=== PATIENT | male | born 1965 | race Caucasian/White ===

== ENCOUNTER 2018-09-24 12:37 | Emergency (ER) | payer BC, SELFPAY ==
[2018-09-24] VITALS (11 sets, daily range): BP systolic 108–130; BP diastolic 72–97; PULSE 59–129; RESP 13–23; TEMP 36.6; O2SAT 98–100; BMI 23.6
[2018-09-24] MEDS: TICAGRELOR 90 MG TABLET 180 MG PO (13:00)
[2018-09-24] MEDS: Metoprolol Tartrate 5 MG/5 ML Vial IV (13:00)
--- NOTE | 2018-09-24 13:00 | RAD_ITS ---
STUDY: X-RAY CHEST REASON FOR EXAM: Male, 53 years old. Chest pain, tachycardia. STEMI alert. TECHNIQUE: Single AP portable view of the chest. COMPARISON: Comparison is made with prior study dated April 24, 2017. FINDINGS: EKG electrode are seen. Hyperinflation. Scattered calcified granulomas. The lungs are clear and expanded. There is no demonstrated pleural abnormality. Normal size heart. Normal mediastinum and rosie. Normal visualized pulmonary arteries. Normal visualized aortic arch and descending thoracic aorta. Normal visualized thoracic spine. Normal visualized ribs, clavicles, and shoulders. There is no demonstrated abnormality of the visualized soft tissue structures of the upper abdomen. RAD/Chest 1 View (Portable) IMPRESSION: Hyperinflation. The lungs are clear. Electronically Signed: Devin Fabian, at 13:16 EDT , Service support ,
--- NOTE | 2018-09-24 13:05 | CM.ED ---
SOCIAL WORK THIS WORKER RESPONDED TO STEMI. SUPPORT AND EDUCATION PROVIDED TO PATIENT'S WHO ARRIVED SHORTLY AFTER STEMI WAS CALLED. JUANCARLOS BERRY, PRISON LIBRARIAN, SENIOR FRONT END DEVELOPER.
--- NOTE | 2018-09-24 13:07 | EKG12_ITS ---
Test Reason : REPEAT Blood Pressure : / mmHG Vent. Rate : 056 BPM Atrial Rate : 264 BPM P-R Int : 000 ms QRS Dur : 110 ms QT Int : 424 ms P-R-T Axes : -89 098 058 degrees QTc Int : 409 ms Atrial flutter with variable A-V block Rightward axis Low Voltage QRS (Limb Leads) Abnormal ECG Confirmed by JEFF CHAUDHRY, KEVIN ([id number]), editor news BARTOLOME CELESTIN ([id number]) on 09/28/2018 10:23:48 AM Referred By: Cirilo Gold Confirmed By:KEVIN AGUILAR MD
--- NOTE | 2018-09-24 13:08 | ED.VISSUMM ---
- ER Visit Summary Date of Service: 09/24/18 Chief Complaint: [] Chest pain rapid heart rate for weeks History of Present Illness: The patient is a 53 M [] history of A. fib on Eliquis flecainide, indicates weeks increasing heart rate, he is had intermittent changes in his flecainide dose metoprolol dose as he was doing so well his doctors try to decrease his medications when he noticed increasing rapid heart rate he began taking his usual dose of flecainide and metoprolol for at least the last 5 to 7 days he has noticed despite doing that he had persistent rapid heart rate and some chest pressure and he finally came in today for evaluation. No fever no cough, indicates he had a nuclear cardiac stress test on point time the found no signs of CAD [place] or other abnormalities he is otherwise a healthy individual with a history of left shoulder surgery Physical Examination: [] Vital signs were remarkable heart rate of 120-130 A. fib on the monitor blood pressure 120/80 General, no distress resting comfortably HEENT is generally unremarkable The neck is supple no adenopathy Cardiovascular, irregular rate and rhythm 130 Lungs, clear bilateral Abdomen, soft nontender Extremities, no clubbing cyanosis or edema Neurologic, awake alert answering questions appropriately moving all 4 extremities Test Results: [] Emergency Department Course and Treatment: [] AG shows A. fib RVR other ST segment changes inferiorly and in V1 suggestive of an acute STEMI, acute STEMI protocol was activated he received the usual medications we spoke with Dr. villeda, when he came to be down see the patient shortly, patient is remained stable here in the department Dr. villeda the patient given metoprolol for rate control, and then we will reassess, Dr. villeda called back and felt that at this point time his symptoms were likely related to his A. fib RVR and the STEMI protocol could be suspended the patient should remitted to the hospital for further management Treatment Plan: [] His heart rate is now about 60 to 70 a flutter, his screening labs are unremarkable as is a chest x-ray at this time per Dr. mistry has instructions the patient be admitted to telemetry is resting complained bed in no distress Disposition: [] Admit stable Impression: [] Chest pain, A. fib flutter RVR Patient has remained heart rate A. fib flutter about 70 no complaints the hospitalist went to see him for admission he declined admission significant fine now indicating that he had a long history of A. 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 It may contain incorrect words, spelling, and punctuation that were not noted in review of the chart prior to signing ED Disposition - Plan for ED Patient: Referrals: Abhinav Mcfarlane III, MD [Primary Care Provider] -
[2018-09-24] MEDS: 0.9% Normal Saline 1,000 ML 150 ML IV (13:09)
[2018-09-24] MEDS: Aspirin 81 MG TAB.CHEW 324 MG PO (13:09)
--- NOTE | 2018-09-24 13:13 | ED.DCSUM_ITS ---
- ER Visit Summary Date of Service: 09/24/18 Chief Complaint: [] Chest pain rapid heart rate for weeks History of Present Illness: The patient is a 53 M [] history of A. fib on Eliquis flecainide, indicates weeks increasing heart rate, he is had intermittent changes in his flecainide dose metoprolol dose as he was doing so well his doctors try to decrease his medications when he noticed increasing rapid heart rate he began taking his usual dose of flecainide and metoprolol for at least the last 5 to 7 days he has noticed despite doing that he had persistent rapid heart rate and some chest pressure and he finally came in today for evaluation. No fever no cough, indicates he had a nuclear cardiac stress test on point time the found no signs of CAD [place] or other abnormalities he is otherwise a healthy individual with a history of left shoulder surgery Physical Examination: [] Vital signs were remarkable heart rate of 120-130 A. fib on the monitor blood pressure 120/80 General, no distress resting comfortably HEENT is generally unremarkable The neck is supple no adenopathy Cardiovascular, irregular rate and rhythm 130 Lungs, clear bilateral Abdomen, soft nontender Extremities, no clubbing cyanosis or edema Neurologic, awake alert answering questions appropriately moving all 4 extremities Test Results: [] Emergency Department Course and Treatment: [] AG shows A. fib RVR other ST segment changes inferiorly and in V1 suggestive of an acute STEMI, acute STEMI protocol was activated he received the usual medications we spoke with Dr. villeda, when he came to be down see the patient shortly, patient is remained stable here in the department Dr. villeda the patient given metoprolol for rate control, and then we will reassess, Dr. villeda called back and felt that at this point time his symptoms were likely related to his A. fib RVR and the STEMI protocol could be suspended the patient should remitted to the hospital for further management Treatment Plan: [] His heart rate is now about 60 to 70 a flutter, his screening labs are unremarkable as is a chest x-ray at this time per Dr. mistry has instructions the patient be admitted to telemetry is resting complained bed in no distress Disposition: [] Admit stable Impression: [] Chest pain, A. fib flutter RVR Patient has remained heart rate A. fib flutter about 70 no complaints the hosp italist went to see him for admission he declined admission significant fine now indicating that he had a long history of A. fib he had a referral manager at home and did not wish to be admitted I discussed on the concept of complications from the A. 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 It may contain incorrect words, spelling, and punctuation that were not noted in review of the chart prior to signing ED Disposition - Plan for ED Patient: Referrals: Abhinav Mcfarlane III, MD [Primary Care Provider] -
[2018-09-24 13:15] LABS: Absolute Lymphocyte Count 3.41 X10^3/ul (0.83-4.51); Absolute Neutrophil Count 4.1 X10^3/uL (2.0-7.7); Basophil# 0.02 X10^3/uL; Basophil% 0.2 % (0-1); Eosinophil# 0.19 X10^3/uL; Eosinophils% 2.2 % (0-5); Hematocrit 49.7 % (40-54); Hemoglobin 17.2 g/dl (13.0-16.5); Lymphocyte # 3.41 X10^3/ul (4.0); Lymphocyte % 39.9 % (19-41); Mean Corp Hgb Conc 34.6 g/gl (32-36); Mean Corpuscular Hgb 32.1 pg (27.0-32.0); Mean Corpuscular Volume 92.9 fL (80-94); Mean Platelet Vol. 9.2 fl (6.2-12.0); Monocyte# 0.84 X10^3/uL; Monocyte% 9.8 % (0-10); Neutrophil # 4.05 X10^3/uL (2.7-7.7); Neutrophil % 47.4 % (47-70); POSITIVE COUNT NO; POSITIVE DIFFERENTIAL NO; POSITIVE MORPHOLOGY NO; Platelet Count 328 K/mm3 (150-450); RBC Distribution Width SD 43.7 fl (35.1-43.9); Red Blood Count 5.35 M/mm3 (4.6-6.2); White Blood Count 8.6 K/mm3 (4.4-11.0)
[2018-09-24] MEDS: dilTIAZem 25 MG/5 ML Vial 20 MG IV BOLUS (13:26)
[2018-09-24 13:27] LABS: Anion Gap 6 (5-15); BUN 12 mg/dL (7-18); BUN/Creat Ratio 10.3 RATIO (10-20); Chloride 105 mmol/L (98-107); Creatinine, Serum 1.17 mg/dL (0.70-1.30); EST Glomerular Filtration Rate 69 mL/min (>60); Est Glom Filt Rate - Afr Amer 83 mL/min (>60); Estimated Creatinine Clearance 71.34 ml/min; Glucose 102 mg/dL (74-106); Sodium Level 139 mmol/L (136-145)
--- NOTE | 2018-09-24 13:31 | PCM.CONS.C ---
Problem List (1) Palpitations Status: Acute Reason for Consult Date of Consultation: 09/24/18 History of Present Illness: The patient is a 53 year old M with past medical history significant for paroxysmal atrial fibrillation. He has been under care of Dr. Benton and has been on flecainide, Xarelto and atenolol for his atrial fibrillation. According to the patient, his symptoms have really been well controlled however this last Friday he started noticing increased palpitations. According to him, he just felt uneasy with them. These palpitations have continued over the last few days. Denies any chest pain or tightness. According to the patient, he is chronically short of breath particularly on exertion. He has not noticed any recent change to that pattern. [] Past Medical History Allergies/Adverse Reactions: Allergies loracarbef [From Lorabid] Allergy (Verified 09/24/18 12:37) Itching Home Medications: Ambulatory Orders Medication Instructions Recorded Atenolol [Tenormin (beta mathieu)] 25 mg PO DAILY 04/06/17 Flecainide [Tambocor] 50 mg PO BID 04/06/17 Rivaroxaban [Xarelto] 20 mg PO DAILY 04/06/17 Fluticasone 0.05% [Flonase Nasal 1 spray NARES DAILY 09/24/18 [place]] Smoking Status: Current every day smoker Review of Systems - Review of Systems General: Denies: Fever, Chills HEENT: Denies: Head Aches Cardiovascular: Reports: Shortness of Breath with Exertion, Palpitations. Denies: Chest Discomfort at Rest, Chest Discomfort with Exertion, PND, Peripheral Edema, Near Syncope, Syncope Respiratory: Reports: Shortness of Breath Gastrointestinal: Denies: Abdominal Discomfort, Jaundice, Nausea, Melena Neurological: Denies: History of TIA, History of CVA Hematologic/ Lymphatic: Denies: Easy Brusing, Easy Bleeding Objective: Vital Signs Temp Pulse Resp BP Pulse Ox 97.9 F 80 14 113/97 H 100 09/24/18 12:38 09/24/18 13:31 09/24/18 13:28 09/24/18 13:28 09/24/18 13:28 Oxygen Delivery Method Room Air Weight: 72.575 kg Body Mass Index (BMI) 23.6 General: Awake, Alert, Oriented x 3, No Acute Distress HEENT: Atraumatic, Normocephalic Oral: Moist Mucosa Neck: Supple, No JVD Lungs: Clear to auscultation Cardiovascular: Irregular Rhythm, Normal S1, Normal S2 Vascular: No Carotid Bruits Abdomen: Bowel Sounds Present, Soft Extremities: No edema Neurological: No Focal Motor or Sensory Deficit Psych/Mental Status: Appropriate 09/24/18 13:00: WBC 8.6, RBC 5.35, Hgb 17.2 H, Hct 49.7, MCV 92.9, MCH 32.1 H, MCHC 34.6, RDW 13.0, RDW Differential 43.7, Plt Count 328, MPV 9.2, Immature Gran % (Auto) 0.500, Neut % (Auto) 47.4, Lymph % (Auto) 39.9, Cross % (Auto) 9.8, Eos % (Auto) 2.2, Baso % (Auto) 0.2, Absolute Neuts (auto) 4.1, Total Counted Not Reportable 09/24/18 13:00: Sodium 139, Potassium 4.0, Chloride 105, Carbon Dioxide 28.0, Anion Gap 6, BUN 12, Creatinine 1.17, Est GFR (MDRD) Af Amer 83, Est GFR (MDRD) Non-Af 69, BUN/Creatinine Ratio 10.3, Glucose 102, Calcium 9.0, Troponin I < 0.015 Rhythm: Atrial fibrillation/flutter EKG: Rhythm is atrial fibrillation/flutter. No ST elevation myocardial infarction ECHO: Stress Test: Cardiac Cath: PCI: CT Surgery: Holter monitor: EPS: PPM: CXR: Chest CT Scan: Assessment/Plan 1. Atrial fibrillation/flutter with uncontrolled ventricular response. Continue beta-mathieu. Start on diltiazem. Control heart rate with beta-blockers and calcium channel mathieu. Stop flecainide. Check 2D echocardiogram with Doppler. Patient has been chronically anticoagulated with Xarelto by his primary application packaging consultant Dr. Benton. His CHADS-2Vasc score is 0 to me at this point in time. Of course I do not have data about his LV function or any vascular disease. I will defer the decision of continuing anticoagulation for the patient to patient's primary application packaging consultant Dr. Benton. 2. Patient has dyspnea on exertion. He has risk factors for coronary artery disease. Check Lexiscan stress Cardiolite in the morning. 3. EtOH abuse. Counseled to quit 4. History of nicotine dependence. Counseled to quit
--- NOTE | 2018-09-24 13:37 | CON.PCM_ITS ---
Problem List (1) Palpitations Status: Acute Reason for Consult Date of Consultation: 09/24/18 History of Present Illness: The patient is a 53 year old M with past medical history significant for paroxysmal atrial fibrillation. He has been under care of Dr. Benton and has been on flecainide, Xarelto and atenolol for his atrial fibrillation. According to the patient, his symptoms have really been well controlled however this last Friday he started noticing increased palpitations. According to him, he just felt uneasy with them. These palpitations have continued over the last few days. Denies any chest pain or tightness. According to the patient, he is chronically short of breath particularly on exertion. He has not noticed any recent change to that pattern. [] Past Medical History Allergies/Adverse Reactions: Allergies loracarbef [From Lorabid] Allergy (Verified 09/24/18 12:37) Itching Home Medications: Ambulatory Orders Medication Instructions Recorded Atenolol [Tenormin (beta mathieu)] 25 mg PO DAILY 04/06/17 Flecainide [Tambocor] 50 mg PO BID 04/06/17 Rivaroxaban [Xarelto] 20 mg PO DAILY 04/06/17 Fluticasone 0.05% [Flonase Nasal 1 spray NARES DAILY 09/24/18 [place]] Smoking Status: Current every day smoker Review of Systems - Review of Systems General: Denies: Fever, Chills HEENT: Denies: Head Aches Cardiovascular: Reports: Shortness of Breath with Exertion, Palpitations. De nies: Chest Discomfort at Rest, Chest Discomfort with Exertion, PND, Peripheral Edema, Near Syncope, Syncope Respiratory: Reports: Shortness of Breath Gastrointestinal: Denies: Abdominal Discomfort, Jaundice, Nausea, Melena Neurological: Denies: History of TIA, History of CVA Hematologic/ Lymphatic: Denies: Easy Brusing, Easy Bleeding Objective: Vital Signs Temp Pulse Resp BP Pulse Ox 97.9 F 80 14 113/97 H 100 09/24/18 12:38 09/24/18 13:31 09/24/18 13:28 09/24/18 13:28 09/24/18 13:28 Oxygen Delivery Method Room Air Weight: 72.575 kg Body Mass Index (BMI) 23.6 General: Awake, Alert, Oriented x 3, No Acute Distress HEENT: Atraumatic, Normocephalic Oral: Moist Mucosa Neck: Supple, No JVD Lungs: Clear to auscultation Cardiovascular: Irregular Rhythm, Normal S1, Normal S2 Vascular: No Carotid Bruits Abdomen: Bowel Sounds Present, Soft Extremities: No edema Neurological: No Focal Motor or Sensory Deficit Psych/Mental Status: Appropriate 09/24/18 13:00: WBC 8.6, RBC 5.35, Hgb 17.2 H, Hct 49.7, MCV 92.9, MCH 32.1 H, MCHC 34.6, RDW 13.0, RDW Differential 43.7, Plt Count 328, MPV 9.2, Immature Gran % (Auto) 0.500, Neut % (Auto) 47.4, Lymph % (Auto) 39.9, [place] % (Auto) 9.8, Eos % (Auto) 2.2, Baso % (Auto) 0.2, Absolute Neuts (auto) 4.1, Total Counted Not Reportable 09/24/18 13:00: Sodium 139, Potassium 4.0, Chloride 105, Carbon Dioxide 28.0, Anion Gap 6, BUN 12, Creatinine 1.17, Est GFR (MDRD) Af Amer 83, Est GFR (MDRD) Non-Af 69, BUN/Creatinine Ratio 10.3, Glucose 102, Calcium 9.0, Troponin I < 0.015 Rhythm: Atrial fibrillation/flutter EKG: Rhythm is atrial fibrillation/flutter. No ST elevation myocardial infarction ECHO: Stress Test: Cardiac Cath: PCI: CT Surgery: Holter monitor: EPS: PPM: CXR: Chest CT Scan: Assessment/Plan 1. Atrial fibrillation/flutter with uncontrolled ventricular response. Continue beta-mathieu. Start on diltiazem. Control heart rate with beta-blockers and calcium channel mathieu. Stop flecainide. Check 2D echocardiogram with Doppler. Patient has been chronically anticoagulated with Xarelto by his primary milling machine tender Dr. Benton. His CHADS-2Vasc score is 0 to me at this point in time. Of course I do not have data about his LV function or any vascular disease. I will defer the decision of continuing anticoagulation for the patient to patient's primary milling machine tender Dr. Benton. 2. Patient has dyspnea on exertion. He has risk factors for coronary artery disease. Check Lexiscan stress Cardiolite in the morning. 3. EtOH abuse. Counseled to quit 4. History of nicotine dependence. Counseled to quit
--- NOTE | 2018-09-24 13:41 | EKG12_ITS ---
Test Reason : PALPS Blood Pressure : / mmHG Vent. Rate : 127 BPM Atrial Rate : 127 BPM P-R Int : 224 ms QRS Dur : 122 ms QT Int : 290 ms P-R-T Axes : 242 112 018 degrees QTc Int : 421 ms Atrial Flutter Low Voltage QRS (Limb Leads) Confirmed by JEFF CHAUDHRY, KEVIN ([id number]), mapping editor BARTOLOME CELESTIN ([id number]) on 09/28/2018 10:24:20 AM Referred By: Cirilo Gold Confirmed By:KEVIN AGUILAR MD
--- NOTE | 2018-09-24 14:45 | PCM.HP.STD ---
History of Present Illness The patient is a 53 year old M [] Past Medical History Allergies loracarbef [From [facility]] Allergy (Verified 09/24/18 14:27) Itching/RASH Home Medications: Ambulatory Orders Medication Instructions Recorded Atenolol [Tenormin (beta mathieu)] 25 mg PO QHS 04/06/17 Flecainide [Tambocor] 50 mg PO BID 04/06/17 Rivaroxaban [Xarelto] 20 mg PO DAILY 04/06/17 Fluticasone 0.05% [Flonase Nasal 2 spray NARES DAILY 09/24/18 [place]] Smoking Status: Current every day smoker Tobacco Use: Cigarettes Patient Problems: Active and Suspected Problems (Last Updated 09/24/18 @ 13:34 by Cirilo Gold MD) Palpitations (Acute) - Physical Exam Vital Signs Temp Pulse Resp BP Pulse Ox 97.9 F 59 L 16 109/82 H 98 09/24/18 12:38 09/24/18 14:30 09/24/18 14:30 09/24/18 14:30 09/24/18 14:30 Oxygen Flow Rate (L/min) 2 Oxygen Delivery Method Nasal Cannula Weight: 72.575 kg Body Mass Index (BMI) 23.6 Laboratory Tests Past 24 Hrs 09/24/18 09/24/18 13:00 13:00 WBC 8.6 RBC 5.35 Hgb 17.2 H Hct 49.7 MCV 92.9 MCH 32.1 H MCHC 34.6 RDW 13.0 RDW Differential 43.7 Plt Count 328 MPV 9.2 Immature Gran % (Auto) 0.500 Neut % (Auto) 47.4 Lymph % (Auto) 39.9 [place] % (Auto) 9.8 Eos % (Auto) 2.2 Baso % (Auto) 0.2 Absolute Neuts (auto) 4.1 Absolute Lymphs (auto) 3.41 Total Counted Not Reportable Sodium 139 Potassium 4.0 Chloride 105 Carbon Dioxide 28.0 Anion Gap 6 BUN 12 Creatinine 1.17 Estim Creat Clear Calc 71.34 Est GFR (MDRD) Af Amer 83 Est GFR (MDRD) Non-Af 69 BUN/Creatinine Ratio 10.3 Glucose 102 Calcium 9.0 Troponin I < 0.015 Assessment/Plan All Active Problems (Last Updated 09/24/18 @ 13:34 by Cirilo Gold MD) Palpitations (Acute)
--- NOTE | 2018-09-24 15:35 | ED.DEP ---
ED Disposition - Plan for ED Patient: Instructions: ED Paroxysmal Atrial Flutter Referrals: Abhinav Mcfarlane III, MD [Primary Care Provider] - Additional Instructions: Follow-up with all of your outpatient providers tomorrow return for change in symptoms
== END 2018-09-24 15:47 | disposition home or self-care (01) ==
PROVIDERS: Emergency Provider Emergency Medicine; Family Provider Family Medicine; PCP Family Medicine; Referring Provider Internal Medicine Cardiovascular Disease
DX: I48.91 Unspecified atrial fibrillation (principal); R07.9 Chest pain, unspecified; I48.92 Unspecified atrial flutter
CPT/HCPCS: 71045; 80048; 84484; 85025; 93005; 99285; J7030; A4216

== ENCOUNTER 2018-11-10 08:56 | Day surgery (SDC) | payer BC, SELFPAY ==
[2018-09-24 12:38] VITALS: BMI 23.6
--- NOTE | 2018-11-05 04:23 | HP_ITS ---
HPI HPI History of Present Illness Surgical H&P: Yes Details: This is a 53-year-old white male who presents today for outpatient cardiovascular evaluation for concerns of palpitations, shortness of breath/dyspnea, atrial fibrillation, and what was reported as an abnormal stress echocardiogram. He has previously been evaluated by [facility] cardiology. He has been treated for his atrial dysrhythmia in the past with a combination of rate control, antiarrhythmic therapy, and anticoagulant therapy. He states over the last several years he has had 2 episodes of recurrent atrial dysrhythmia 1 of which occurred in September of this year. He was evaluated at the [facility] emergency department. He was treated with additional rate control therapy. He was subsequently noted to request discharge home for continued outpatient follow-up. According to the emergency department record he was subsequently discharged AGAINST MEDICAL ADVICE. He states he gradually went back into normal rhythm. He has had no recurrent atrial dysrhythmias as he senses him by feeling flutters or worms in my chest. He has denied ongoing chest discomfort. He admits to shortness of breath and dyspnea which she is attributed to tobacco use. He has had no near syncope or syncope. It appears he followed up with his [facility] crystal grinder and in October of this year had a stress echocardiogram. Per the [facility] report he has resting LV function was reported as normal. His exercise echo was reported as nondiagnostic due to suboptimal heart rate response. Thus based upon his history, symptoms, use of antiarrhythmic therapy with flecainide/Tambocor, he was recommended for further evaluation with diagnostic cardiac catheterization to determine whether he does or does not have underlying coronary artery disease. As his [facility] crystal grinder is retiring he has now transferred his cardiovascular care to the [facility]. He had an ECG performed today. He was noted to be in sinus bradycardia. He had no acute ECG changes. 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 Accompanied by: Self Allergies loracarbef [From Lorabid] Allergy (Verified 11/05/18 15:15) Itching/RASH Medications Fluticasone 0.05% [Flonase Nasal [place]] 2 spray NARES DAILY 09/24/18 [History Confirmed 11/05/18] flecainide 100 mg tablet 100 mg PO BID tab 11/04/18 [History Confirmed 11/05/18] sildenafil 50 mg tablet 50 mg PO DAILY PRN 11/04/18 [History Confirmed 11/05/18] aspirin 81 mg tablet,delayed release 81 mg PO DAILY #1 tab 11/05/18 [Rx Confirmed 11/05/18] atenolol 50 mg tablet 25 mg PO DAILY tab 11/05/18 [History Confirmed 11/05/18] clopidogrel 75 mg tablet 75 mg PO DAILY #30 tab 11/05/18 [Rx Confirmed 11/05/18] PFSH Medical History Abnormal stress test (Acute) Paroxysmal atrial fibrillation (Acute) Palpitations (Acute) DDD (degenerative disc disease) (Chronic) Surgical History History of hernia repair (Resolved) History of shoulder surgery (Resolved) Family History Father Diabetes Mother Cancer Breast Diabetes Grandfather Diabetes Social History Smoking Status: Current every day smoker alcohol intake: current details: occasional substance use type: does not use caffeine: Yes Type: carbonated beverages Number of servings: 2, coffee Number of servings: 2 ROS Const Const: Negative for fatigue, weakness, frequent falls, excessive sweating, weight gain or weight loss Eyes Eyes: Negative for transient loss of vision, blurry vision or change in vision ENT ENT: Negative for dizziness or balance problems Cardio Chest Pain: Yes Character: sharp Location: left chest Duration: minutes, brief Palpitations: No Edema: None Muscle aches with walking: None Resp Respiratory: Positive for SOB with activity (slight, occasional); negative for SOB at rest GI GI: Negative vomiting or vomiting blood/hematemesis : Negative for hematuria Musc Musc: Negative for muscle aches/ myalgia, muscle weakness, joint pain or balance problems Skin Skin: Negative non-healing lesions or rash Neuro Neuro: Negative for dizziness, lightheadedness, orthostatic symptoms, frequent falls, weakness or blurry vision Darin Hematologic/Lymphatic: Negative for easy bleeding Endo Endo: Negative for fatigue or excessive sweating Psych Psych: Negative for anxiety or depression Allergy Allergy/Immunology: Negative for hives, Negative for rash Cardiology Exam Const Appearance: cooperative, healthy appearing, comfortable, no acute distress, well developed and well groomed Nutritional Appearance: thin Orientation: alert, awake and oriented x3 Head Head: normal to inspection, normocephalic and atraumatic Ears: hearing grossly normal bilaterally Nose: external nose normal Face and Sinus: face symmetric Mouth: oral mucosae normal Teeth and gingiva: fair dentition Eyes Eyelids: eyelids normal Conjunctivae: conjunctivae normal Pupils: PERRL EOM: EOM intact bilaterally Neck Neck: normal visual inspection and full ROM Carotids: normal carotid upstroke Chest Chest inspection: normal inspection of the chest, symmetric chest movement and normal respiratory effort Auscultation: Left: Expiratory Wheezes Cardio Palpation: normal PMI Rate: regular rate Heart sounds: S1 normal and S2 normal GI GI: normal to inspection, soft and bowel sounds present Neuro General: alert, awake, oriented x3 and moves all extremities Skin Skin: no rashes or lesions noted Extremities Pulses: Normal: Right Radial Pulse, Left Radial Pulse Lower Extremity Edema: None: Bilateral Psych Psychological: normal affect Assessment & Plan 1. Palpitations R00.2 Plan At the present time he does sense palpitations at times. However he states that the have not proceeded to recurrent atrial dysrhythmias as he has had recently. At the moment he appears remaining in sinus rhythm/sinus bradycardia. He will continue his rate control therapy. He will continue his antiarrhythmic therapy. Orders Orders: Left Heart Cath/COR/LV Percut Today Basic Metabolic Profile (BMP) Today Partial Thromboplast Time Today Prothrombin Time w/INR Today CBC W/Diff, Automated Today 2. Paroxysmal atrial fibrillation I48.0 Plan He does have history of paroxysmal atrial fibrillation as previously noted. At the moment he will continue his rate control therapy and his antiarrhythmic therapy. He will continue his anticoagulant therapy barring temporary interruption with respect to his upcoming invasive evaluation and care. Orders Orders: 12 Lead EKG performed by BMS Today Left Heart Cath/COR/LV Percut Today Basic Metabolic Profile (BMP) Today Partial Thromboplast Time Today Prothrombin Time w/INR Today CBC W/Diff, Automated Today 3. Shortness of breath R06.02 Plan His shortness of breath may or may not be related to his cardiovascular status. Based upon his previous diagnosis and risk factors there would be concern of underlying coronary artery disease. However the same time he does have a positive tobacco history and based on his chest x-ray has hyperinflation thus there may be a component of underlying COPD as well. Orders Orders: Left Heart Cath/COR/LV Percut Today Basic Metabolic Profile (BMP) Today Partial Thromboplast Time Today Prothrombin Time w/INR Today CBC W/Diff, Automated Today 4. Abnormal stress test R94.39 Plan His stress echocardiogram was considered abnormal by his [facility] crystal grinder. He has been recommended for further definitive evaluation with diagnostic cardiac catheterization based upon the aforementioned issues and concerns. The procedure and risks have been discussed with him. He was agreeable to this approach. He will be temporarily interrupting his anticoagulant therapy. He will be placed on aspirin therapy and antiplatelet therapy with clopidogrel in anticipation that he may need PCI. If he does not then he can discontinue these medications and return to his anticoagulant therapy. The above was discussed with the patient. He was agreeable to this approach. Orders Orders: 12 Lead EKG performed by BMS Today Left Heart Cath/COR/LV Percut Today Basic Metabolic Profile (BMP) Today Partial Thromboplast Time Today Prothrombin Time w/INR Today CBC W/Diff, Automated Today Plan Detail Other Medications New: aspirin 81 mg PO DAILY 1 tab 0RF clopidogrel (Plavix) 4 Tabs (300 mg) on day 1; then 1 Tab (75 mg) a day 75 mg PO DAILY 30 tabs 1RF Discontinued: 2 rivaroxaban Discontinued Reason: Order Changed 20 mg PO DAILY BLOOD THINNER Additional Comments Thank you for allowing me to participate in the care of your patient. Please don't hesitate to call if any issues arise. This note was generated using a voice recognition system and there may be incorrect words, spelling or punctuation that were not noted when reviewing the office note prior to saving. Follow Up 6 Months (PFM) Coding Level of Care Code Off vis,est,level 5 Diagnoses Palpitations R00.2 Paroxysmal atrial fibrillation I48.0 Shortness of breath R06.02 Abnormal stress test R94.39 Coding Level of Care Code Off vis,est,level 5 Diagnoses Palpitations R00.2 Paroxysmal atrial fibrillation I48.0 Shortness of breath R06.02 Abnormal stress test R94.39 Supplemental Info Supplemental Information Diagnostics Electrocardiogram 11/05/18 Chest X-Ray 09/24/18 11/05/18 1623 <Electronically signed by Wan Scales MD> Date Wan Scales MD I have re-examined the patient. There are no clinical changes since date of exam.
[2018-11-05 15:15] VITALS: BMI 23.6
[2018-11-05 17:11] LABS: Absolute Lymphocyte Count 3.81 X10^3/ul (0.83-4.51); Basophil# 0.03 X10^3/uL; Basophil% 0.3 % (0-1); Eosinophils% 2.9 % (0-5); Hematocrit 48.2 % (40-54); Lymphocyte # 3.81 X10^3/ul (4.0); Lymphocyte % 37.1 % (19-41); Mean Corp Hgb Conc 35.3 g/gl (32-36); Mean Corpuscular Hgb 32.3 pg (27.0-32.0); Mean Corpuscular Volume 91.6 fL (80-94); Mean Platelet Vol. 9.5 fl (6.2-12.0); Monocyte# 1.03 X10^3/uL; Neutrophil % 48.7 % (47-70); POSITIVE COUNT NO; POSITIVE DIFFERENTIAL NO; POSITIVE MORPHOLOGY NO; Platelet Count 291 K/mm3 (150-450); RBC Distribution Width CV 13.2 % (11.6-14.6); RBC Distribution Width SD 43.9 fl (35.1-43.9); Red Blood Count 5.26 M/mm3 (4.6-6.2); White Blood Count 10.3 K/mm3 (4.4-11.0)
[2018-11-05 17:19] LABS: International Normalized Ratio 1.1
[2018-11-05 17:49] LABS: Anion Gap 6 (5-15); BUN 11 mg/dL (7-18); BUN/Creat Ratio 10.2 RATIO (10-20); Calcium,Total 9.1 mg/dL (8.5-10.1); Chloride 106 mmol/L (98-107); Creatinine, Serum 1.08 mg/dL (0.70-1.30); EST Glomerular Filtration Rate 75 mL/min (>60); Est Glom Filt Rate - Afr Amer 91 mL/min (>60); Glucose 88 mg/dL (74-106); Potassium 4.2 mmol/L (3.5-5.1); Sodium Level 142 mmol/L (136-145)
[2018-11-09 10:56] VITALS: BMI 23.6
--- NOTE | 2018-11-10 15:14 | CL.D_ITS ---
Patient Name: ANATOLY TANG Study Date: 11/10/2018 Performing: Wan Scales MD Ht: 68.89 inches 175 cm : 1965 Wt: 160.94 lbs 73 kg Age: 53 Gender: male BSA: 1.88 PROCEDURE(S) PERFORMED HN53-GKB/COR/LV CLINICAL PROFILE AND INDICATIONS Indications: Suspected CAD Heart Failure: None Stress/Imaging Stress Echocardiogram: Yes Result: Indeterminant (Anormal ECG portion)Stress Echoc ardiogram: Indeterminant (Anormal ECG portion) Angina Classification Anginal Classification w/in 2 Weeks: CCS II CAD Presentations: Stable angina. CONCLUSIONS Elevated Left Ventricular End Diastolic Pressure Normal LV size, wall motion,and systolic function LVEF: by LV gram 55 % Single vessel CAD of the LAD: Mid: Long: Smooth: 85% Stenosis: appearing c/w a combination of LAD int ramyocardial bridge and coronary artery vasospasm which appears to improve s/p IC NTG 200 mcg RECOMMENDATIONS Risk factor modification Medical therapy DESCRIPTION OF PROCEDURE The patient arrived to the procedure lab. The risks and benefits of the procedure as well as a full d escription of our services here and current unavailability of surgical backup were fully explained to the patient and/or their significant other prior to the catheterization. The Timeout was completed, verifying the correct patient and procedure. The patient's procedural site was prepped and draped in the usual fashion. Local anesthetic was given subcutaneously to right groin region with Lidocaine 2%. Using a modified Seldinger technique, arterial access was obtained via the right femoral artery, a 4 Fr sheath was inserted Left Coronary Artery selective angiography was performed in multiple views us ing a 4 Fr. JL5 catheter. Right Coronary Artery selective angiography was then performed in multiple views using a 4 Fr. 3DRC catheter. Left Ventriculography was performed in TANG projection using a 4 Fr . Pigtail catheter. LV to AO pullback pressures were then recorded. Left Coronary Artery selective angiography was performed in multiple views using a 4 Fr. JL5 catheter with IC Nitro given. The arterial sheath was pulled and manual compression applied until hemostasis is achieved. CORONARY ANGIOGRAPHY DOMINANCE: Right Dominant LEFT HEART ASSESSMENT Left Ventricular Ejection Fraction: by LV Gram 55 % Normal LV wall motion Elevated Left Ventricular End Diastolic Pressure LVEDP: 24 mmHg LEFT MAIN: Angiographically normal LEFT ANTERIOR DESCENDING ARTERY: MID LAD: Long: Smooth: 85 % Stenosis which appears c/w a combination of an LAD intramyocardial bridge and coronary artery vasospasm which appears to improve s/p IC NTG 200 mcg CIRCUMFLEX ARTERY: Angiographically normal RAMUS: Angiographically normal (small caliber vessel) RIGHT CORONARY ARTERY: Angiographically normal VALVE FINDINGS: Normal Aortic Valve function Normal Mitral Valve function AORTIC ROOT: Angiographically normal COMPLICATIONS No Complications PROCEDURE MEDICATIONS Versed 1 mg IV Oxygen: 2 L/min via nasal cannula Nitro 200 mcg IC 11/10/2018 11:23:53 SUMMARY OF HEMODYNAMIC DATA Time AIR REST ECG 09:19:29 AO 123/55 (78) SA 10:46:13 LV 131/-3, 17 11:11:28 LV 137/-6, 24 11:11:35 LV 133/-3, 20 11:12:32 LVp 123/-6, 20 11:12:38 AOp 134/70 (95) 11:12:43 Signed By Wan Scales MD On 11/10/2018 3:13:44 PM Wan Scales MD
== END 2018-11-10 15:55 | disposition home or self-care (01) ==
LOC: CLSP 08:58
PROVIDERS: Family Provider Family Medicine; PCP Family Medicine; Referring Provider Internal Medicine Cardiovascular Disease; Visit Provider Internal Medicine Cardiovascular Disease
DX: I25.10 Atherosclerotic heart disease of native coronary artery without angina pectoris (principal); R94.39 Abnormal result of other cardiovascular function study; I48.0 Paroxysmal atrial fibrillation; Z79.82 Long term (current) use of aspirin; Z79.899 Other long term (current) drug therapy; F17.200 Nicotine dependence, unspecified, uncomplicated
CPT/HCPCS: 36415; 80048; 85025; 85610; 85730; 93458; 99152; 99153; J7040; Q9967; C1769; C1894

== ENCOUNTER → 2019-11-29 16:30 | Outpatient (CLI) | payer MEDICARE, SELFPAY ==
[2019-09-16 09:42] VITALS: BMI 24.6
--- NOTE | 2019-11-29 | ASPOS_PTH ---
PATIENT: ANATLOY TANG LOC: [facility] U#:[id number] AGE/SX: 60/M ROOM: RE11/29/[address]: Dr. Jacques Guerra MD : 1965 BED: DIS: SPEC #: [id number] RECD: 11/29/19 13:53 STATUS: GERALD REEvan #: [id number] INOCENTE: 11/29/19 00:[address]: Jacques Guerra DEPT: CYTOLOGY RECD BY: Christ Palma ENTERED: 11/29/19 13:53 SP TYPE: ASP HERE OTHR DR: Dr. Abhinav Mcfarlane III, MD Procedures: Surgery Specimen Level IV Cytology Other Fine Needle Asp on Site HEADER OPERATION: Fine needle aspiration left neck mass PRE-OP DIAGNOSIS: Left neck mass TISSUE SUBMITTED: Fine needle aspiration left neck mass DIAGNOSIS CYTOLOGY Fine needle aspiration, left neck mass (smears and cell block): Consistent with Warthin's tumor. AM:kale 11/30/19 COMMENT The specimen is evaluated at the time of FNA by Dr. Lopez. Immediate Evaluation = Consistent with Warthin's tumor. Case has been reviewed in consultation with Dr. Vyas who concurs with the above diagnosis. IDC:[facility] CYTOLOGY STUDY Slides are reviewed. CYTOLOGY GROSS Received is 0.2 ml of reddish fluid labeled with the patient's name, and designated left neck mass. Three imprints and two paps are made from the submitted fluid and the rest is added to CytoLyt for cell block preparation. Submitted for cytology study. / AM:kale 11/29/19 TC:5 CPT: 77537, 51750, 16272, 54904
== END ==
PROVIDERS: PCP Family Medicine; Referring Provider Otolaryngology; Visit Provider Otolaryngology
DX: R22.1 Localized swelling, mass and lump, neck (principal)
CPT/HCPCS: 10021; 88161; 88305

== ENCOUNTER → 2019-12-16 13:48 | Outpatient (CLI) | payer MEDICARE, OTHER, SELFPAY ==
[2019-09-16 09:42] VITALS: BMI 24.6
--- NOTE | 2019-12-16 13:51 | CT_ITS ---
STUDY: CT SOFT TISSUE NECK WITH CONTRAST REASON FOR EXAM: Male, 54 years old. LT NECK MASS RADIATION DOSAGE (If Supplied By Facility): CTDIvol = ( 17.83 ) mGy, DLP = ( 583.67 ) mGycm TECHNIQUE: The patient was scanned in a multi-detector CT scanner. High resolution transaxial imaging was performed following intravenous administration of IV 75mL Isovue-370. Sagittal and coronal images were reconstructed. Individualized dose optimization techniques were used for this CT. COMPARISON: None. FINDINGS: Within the left parotid gland is a homogeneously enhancing hyperdense lesion with well-defined borders. Differential diagnosis includes a pleomorphic adenoma, Warthin tumor, or adenoid cystic tumor. Lesion best seen on axial image 78, and coronal recon image 50. No suspicious adenopathy or induration of the subcutaneous fat. The fat planes are not disrupted. No corresponding lesion noted in the right parotid gland. Normal bilateral teleprinter spaces. Normal bilateral parapharyngeal spaces. Normal bilateral carotid spaces. Normal bilateral sublingual and submandibular glands and spaces. Normal visualized nasopharynx. Normal retropharyngeal space. Normal perivertebral space. Normal visualized bilateral faucial tonsils. The visualized tongue, tongue base and oropharynx are normal. The visualized cervical lymph nodes (levels I-) are within normal size limits, and maintain normal morphology. There is no demonstrated solid or cystic mass lesion. There is no abnormal contrast enhancement. Normal epiglottis, bilateral vallecula and hypopharynx. The pre-epiglottic and paraglottic adipose spaces are normal. Normal visualized bilateral piriform sinuses, aryepiglottic folds, vocal cords, and arytenoid-cricoid articulations. Normal subglottic trachea. Normal bilateral lobes of the thyroid gland. Normal visualized pulmonary apices. Normal visualized paranasal sinuses. There is multilevel degenerative changes of the cervical spine. CT/Soft Tissue Neck WITH Contrast IMPRESSION: Well-defined slightly hyperdense homogeneous enhancing lesion measuring 1.7 x 1.3 x 1.9 cm within the left parotid gland, differential as described above. ENT consultation and biopsy recommended for further evaluation. No associated adenopathy or inflammation. Fat planes are not disrupted. No airway narrowing or deviation Degenerative bony changes Electronically Signed: David Garcia MD at 15:59 EDT , Service support ,
== END ==
PROVIDERS: PCP Family Medicine; Referring Provider Otolaryngology; Visit Provider Otolaryngology
DX: R22.1 Localized swelling, mass and lump, neck (principal)
CPT/HCPCS: 70491; Q9967

== ENCOUNTER 2020-07-04 05:56 | Day surgery (SDC) | payer MEDICARE, OTHER, SELFPAY ==
[2020-05-24 15:45] VITALS: BMI 24.8
[2020-07-03 09:42] LABS: Hematocrit 50.8 % (40-54); Hemoglobin 17.3 g/dL (13.0-16.5); Mean Corp Hgb Conc 34.1 g/dL (32-36); Mean Corpuscular Volume 96.8 fL (80-94); Mean Platelet Vol. 9.4 fl (6.2-12.0); Platelet Count 279 K/mm3 (150-450); RBC Distribution Width CV 12.4 % (11.6-14.6); RBC Distribution Width SD 44.8 fl (35.1-43.9); Red Blood Count 5.25 M/mm3 (4.6-6.2); White Blood Count 10.4 K/mm3 (4.4-11.0)
[2020-07-03 10:25] LABS: Anion Gap 8 (5-15); BUN 9 mg/dL (7-18); BUN/Creat Ratio 7.8 RATIO (10-20); Calcium,Total 8.9 mg/dL (8.5-10.1); Chloride 106 mmol/L (98-107); Creatinine, Serum 1.15 mg/dL (0.70-1.30); EST Glomerular Filtration Rate 70 mL/min (>60); Est Glom Filt Rate - Afr Amer 84 mL/min (>60); Glucose 103 mg/dL (74-106); Potassium 4.3 mmol/L (3.5-5.1); Sodium Level 138 mmol/L (136-145)
[2020-07-04] VITALS (8 sets, daily range): BP systolic 103–123; BP diastolic 65–96; PULSE 83–126; RESP 16; TEMP 36.1–36.7; O2SAT 94–98; BMI 24.7
[2020-07-04] MEDS: Lactated Ringers 1,000 ML 100 ML IV ×3 (07:05→12:38)
[2020-07-04] MEDS: Mupirocin Ointment 22gm Tube 1 APPLIC (11:41)
--- NOTE | 2020-07-04 12:04 | PCM.OPRPT ---
Problem List (1) Mass of parotid gland Status: Chronic Report of Operation Date of Procedure: 07/04/20 Pre-Operative Diagnosis: left parotid mass Post-Operative Diagnosis: left parotid mass Surgery/Procedure Performed:: left superficial parotidectomy - aborted Type of Anesthesia:: General Description of Procedure: on the day of the procedure, after appropriate informed consent was obtained, the patient was brought to the operating room and placed in supine position on the operating table. he was placed under general endotracheal anesthesia by the anesthesiologist. the endotracheal tube was secured, the eyes were taped. the table was rotated 90 degrees toward the surgeon. facial nerve electrodes were placed on the left face and confirmed. the eyes were protected with tegaderm. the face was prepped and draped in sterile fashion. a brooke incision was injected with lidocaine/epinephrine. after vasoconstriction, a modified brooke incision was made with a 15 blade. the superficial musculoaponeurotic system flap was isolated from the overlying skin with a metzenbaum scissor. the flap was then dissected off of the parotid-masseteric fascia with scissors. this was taken inferiorly along the platysma muscle exposing the tumor and the rest of the parotid gland. the tragal pointer was dissected in a supraperichondrial plane. 1 cm inferior and deep a juan dissector was used to locate the main trunk of the facial nerve. a considerable amount of time was spent and the main trunk was not found in its usual location. the posterior belly of the digastric muscle was dissected and the main trunk was found to be deep to the muscle, which is not its typical location. the nerve stimulated but no main trunk of normal caliber could be seen grossly. additional dissection resulted in no discernible nerve pattern and no stimulating nerves. meanwhile, the patient was placed on numerous cardiac medications as well as a phenylephrine drip for his afib with RVR. at this point, it was deemed that the patient had cardiac instability, a completely benign tumor with no chance of malignant transformation and certain variant anatomy of the facial nerve. enucleation was not attempted of the readily visible inferior tail tumor given that the branches of the nerve could be anywhere in its relation. given the situation, a retrograde dissection and additional incisions along the submandibular gland were also not attempted. the incision was closed with a combination of 4-0 vicryl and 5-0 nylon. a 15 spanish slotted drain was placed. the patient was awoken from anesthesia and transferred to the PACU in stable condition. his left-sided house-brackmann score was 1 in the PACU with no deficits.
--- NOTE | 2020-07-04 12:31 | EKG12_ITS ---
Test Reason : POSTOP, HX AFIB Blood Pressure : / mmHG Vent. Rate : 108 BPM Atrial Rate : 122 BPM P-R Int : 000 ms QRS Dur : 100 ms QT Int : 326 ms P-R-T Axes : 000 095 058 degrees QTc Int : 436 ms Atrial fibrillation Nonspecific ST abnormality Abnormal ECG When compared with ECG of 24-SEP-2018 13:41, Atrial fibrillation has replaced Atrial flutter Vent. rate has increased BY [address] no longer elevated in Inferior leads Nonspecific T wave abnormality now evident in Inferior leads T wave amplitude has decreased in Anterolateral leads Confirmed by RUBEN CHAUDHRY, BENJIE ([id number]), food editor BARTOLOME CELESTIN ([id number]) on 07/10/2020 12:22:39 PM Referred By: Porfirio Guerra Confirmed By:SUMEET MIRANDA MD
--- NOTE | 2020-07-04 13:42 | PCM.DC ---
- Discharge Diagnoses Current Active Problems: Current Active and Chronic Problems (Last Reviewed 05/24/20 @ 15:46 by Jacqui Hernandez) Mass of parotid gland (Chronic) You will use the following diet at home:: No restrictions Discharge Activity: Return to Normal Activity Call your doctor if your incision/area has: Increased Pain/ Swelling Allergies/Adverse Reactions: Allergies loracarbef [From Lorabid] Allergy (Verified 06/27/20 09:06) Itching/RASH Medications to take at Discharge Fluticasone 0.05% [Flonase Nasal [place]] 2 spray NARES DAILY 09/24/18 sildenafil 50 mg tablet 50 mg PO DAILY PRN 11/04/18 Rivaroxaban [Xarelto] 20 mg PO DAILY 11/10/18 cholecalciferol (vitamin D3) 25 mcg (1,000 unit) capsule 1,000 unit PO DAILY 04/29/19 atenolol 50 mg tablet 50 mg PO DAILY #90 tab 06/17/19 gabapentin 100 mg capsule 100 mg PO TID 05/24/20 Primary Care Physician: Abhinav Mcfarlane III, MD [Primary Care Provider] - Test Results: Test results from this visit will be discussed in further detail at your follow-up appointment, if applicable. Please Follow Up With: Porfirio Guerra MD When: tomorrow
== END 2020-07-04 14:15 | disposition home or self-care (01) ==
LOC: SDC 06:02 → AC 06:03
PROVIDERS: Anesthesiology; PCP Family Medicine; Referring Provider Otolaryngology; Visit Provider Otolaryngology
PROC: (CPT 42415; principal; 2020-07-04 07:00)
DX: D11.0 Benign neoplasm of parotid gland (principal); I48.91 Unspecified atrial fibrillation; F17.210 Nicotine dependence, cigarettes, uncomplicated; Z53.09 Procedure and treatment not carried out because of other contraindication
CPT/HCPCS: 42415; 36415; 80048; 84484; 85027; 87426; 93005; C9803; J7120; J2405

== ENCOUNTER → 2024-08-18 | Outpatient (CLI) | payer MEDICARE, SELFPAY ==
[2024-08-18 15:54] LABS: Absolute Lymphocyte Count 3.36 X10^3/uL (0.83-4.51); Absolute Neutrophil Count 5.8 X10^3/uL (2.0-7.7); Basophil# 0.08 X10^3/uL; Basophil% 0.8 % (0-1); Eosinophil# 0.18 X10^3/uL; Eosinophils% 1.7 % (0-5); Hematocrit 55.3 % (40-54); Lymphocyte # 3.36 X10^3/ul (0.83-4.51); Lymphocyte % 31.9 % (19-41); Mean Corp Hgb Conc 34.4 g/dL (32-36); Mean Corpuscular Hgb 34.1 pg (27.0-32.0); Mean Corpuscular Volume 99.1 fL (80-94); Mean Platelet Vol. 9.1 fl (6.2-12.0); Monocyte% 9.5 % (0-10); NRBC Flagged by Analyzer 0 % (0-5); Neutrophil # 5.84 X10^3/uL (2.7-7.7); Neutrophil % 55.4 % (47-70); Platelet Count 317 K/mm3 (150-450); RBC Distribution Width SD 47.8 fl (35.1-43.9); Red Blood Count 5.58 M/mm3 (4.6-6.2); White Blood Count 10.5 K/mm3 (4.4-11.0)
[2024-08-18 16:21] LABS: Pathologist Review May foll
[2024-08-18 17:46] LABS: ALB/GLOB Ratio 1.5 RATIO (0.9-2.4); AST(SGOT) 37 U/L (<=37); Alanine Aminotransfer ALT/SGPT 52 U/L (<=46); Albumin, Serum 4.7 g/dL (3.4-4.8); Alkaline Phosphatase 60 U/L (40-129); Anion Gap 13 (5-15); BUN 11 mg/dL (4-19); BUN/Creat Ratio 9.1 RATIO (10-20); Calcium,Total 10.1 mg/dL (7.6-11.0); Carbon Dioxide 24.1 mmol/L (21.0-32.0); Chloride 101 mmol/L (98-108); Creatinine, Serum 1.19 mg/dL (0.70-1.20); EST Glomerular Filtration Rate 69 (>60); Globulin 3.2 g/dL (2.2-4.2); Glucose 112 mg/dL (70-99); PSA,Total - Annual Screen 1.99 ng/mL (0.02-4.00); Potassium 4.7 mmol/L (3.3-5.1); Protein, Total 7.9 g/dL (5.9-8.4); Sodium Level 137 mmol/L (133-145); Total Bilirubin 0.83 mg/dL (0.00-1.30)
[2024-08-18 20:27] LABS: Hepatitis C Antibody Nonreactive (Nonreactive)
== END | disposition home or self-care (01) ==
PROVIDERS: PCP Family Medicine Geriatric Medicine; Visit Provider Family Medicine Geriatric Medicine
DX: R53.83 Other fatigue (principal); Z13.89 Encounter for screening for other disorder; Z12.5 Encounter for screening for malignant neoplasm of prostate
CPT/HCPCS: 36415; 80053; 84153; 84443; 85025; 86803; G0103

== ENCOUNTER → 2024-10-11 | Outpatient (CLI) | payer MEDICARE, SELFPAY ==
--- NOTE | 2024-10-11 08:15 | US_ITS ---
PROCEDURE: ABD LIMITED W/ ELASTOGRAPHY, 10/11/2024 REASON FOR EXAM: ELEVATED FERRITIN COMPARISON: None TECHNIQUE: Grayscale and color Doppler imaging of the right upper quadrant was performed. Elastography was performed for non-invasive assessment of liver tissue stiffness utilizing a Everloop S-shear wave imaging unit. FINDINGS: Liver: Echogenic. 18.0 cm in length. Gallbladder: No visualized stones, wall thickening or pericholecystic fluid. Reportedly, sonographic Penn's was negative. Biliary tree: Unremarkable. CBD measures 6 mm. Pancreas: Partially obscured by shadowing bowel gas, grossly unremarkable as visualized. Right kidney: Unremarkable. 10.7 cm in length. Other: No visualized free fluid. Hepatic elastography: Number of measurements: 15 measurements across 3 regions, 5 measurements per region. US probe: CA1-7A. EQI median: 9.6 kPa EQI median velocity: 1.8 m/s IQR/Med: 12.9-24.4% (kPa) and 5.7-11.5% (m/s). If the IQR/Med is IQR/median >30% (for kPa) or >15% in m/s, the variance in the measurements is a large and the accuracy of the measurement may be in question. US/ABD Limited w/ Elastography IMPRESSION: 1. Appearance of the hepatic parenchyma most commonly suggestive of hepatic james atosis. Correlate for clinical and laboratory evidence of chronic liver disease. 2. Liver stiffness is 9.6 kPa. Per the below 2020 SRU criteria, this is suggest clemente of compensated advanced chronic liver disease but requires further testing for confirmation. 3. Additional description as above. Assessment is per the Update to the SRU Liver Elastography Consensus Statement (2020) Note that the above assessment of liver fibrosis is vendor-neutral and intended for use in fibrosis related to viral etiologies and non-alcoholic fatty-liver disease (NAFLD); in causes other than viral hepat itis and NAFLD, the cutoff values are currently not well established. In some patients with NAFLD, the cutoff values for cACLD may be lower (7-9 kPa). Note also that in the setting of elevated LFTs, nonfasting or vascular congestion, the stage of lifer fibrosis may be overestimated. Previous SRU reference values: <1.37 m/s (5.7kPa): No to mild fibrosis 1.37 m/s - 2.2 m/s: Moderate to severe fibrosis >2.2 m/s (15kPa): Significant fibrosis / cirrhosis Reading Location: [id number]
[2024-10-12 05:07] LABS: GGTP 45 IU/L (0-65); Hepatitis Be Ab Non Reactive (Negative); Hepatitis Be Ag Negative (Negative)
== END | disposition home or self-care (01) ==
PROVIDERS: PCP Family Medicine Geriatric Medicine; Referring Provider Internal Medicine Medical Oncology; Visit Provider Internal Medicine Medical Oncology
DX: R79.89 Other specified abnormal findings of blood chemistry (principal); D75.1 Secondary polycythemia
CPT/HCPCS: 36415; 76705; 76981; 82977; 86707; 87350

== ENCOUNTER → 2024-10-25 | Outpatient (CLI) | payer MEDICARE, SELFPAY ==
--- NOTE | 2024-10-25 15:03 | CT_ITS ---
PROCEDURE: LOW DOSE CT LUNG SCREENING 10/25/2024 REASON FOR EXAM: NICOTINE DEPENDENCE 45 year smoking history TECHNIQUE: Low Dose CT Lung screening without contrast. Coronal and Sagittal reconstruction series were provided. One or more dose reduction techniques were used (e.g., Automated exposure control, adjustment of the mA and/or kV according to patient size, use of iterative reconstruction technique). REFERENCE LINK: [employer] Lung-RADS RADIATION DOSE SUMMARY: DLP: 86.97 mGycm COMPARISON: None FINDINGS: PULMONARY NODULES: (Only nodules >3mm are reported) Pulmonary Nodules: None Hardware:None Lymph Nodes:There is no pathologic adenopathy by size criteria Heart and Vasculature: Unremarkable Coronary Artery Calcifications: Present Lungs and Airways: There is no infiltrate or consolidation. Pleura:There is no pneumothorax or effusion Upper Abdomen:Unremarkable Bones:Unremarkable CT/Low Dose CT Lung Screening IMPRESSION: There is no suspicious pulmonary nodule or mass. Coronary artery calcification (CAC) is present Lung-RADS Category: 1: Negative Other Significant Findings: None. Reading Location: [facility]
== END | disposition home or self-care (01) ==
LOC: CT 14:58
PROVIDERS: PCP Family Medicine Geriatric Medicine; Referring Provider Family Medicine Geriatric Medicine; Visit Provider Family Medicine Geriatric Medicine
DX: F17.210 Nicotine dependence, cigarettes, uncomplicated (principal)
CPT/HCPCS: 71271

== ENCOUNTER → 2025-01-18 | Outpatient (CLI) | payer MEDICARE, SELFPAY ==
[2025-01-18 16:23] LABS: Hematocrit 49.8 % (40-54); Hemoglobin 17.3 g/dL (13.0-16.5); Immature Granulocytes Count 0.040 X10^3/uL (0.0-0.0); Mean Corp Hgb Conc 34.7 g/dL (32-36); Mean Corpuscular Volume 99.6 fL (80-94); Mean Platelet Vol. 9.4 fl (6.2-12.0); NRBC Flagged by Analyzer 0 % (0-5); Platelet Count 240 K/mm3 (150-450); RBC Distribution Width CV 13.2 % (11.6-14.6); RBC Distribution Width SD 48.5 fl (35.1-43.9); Red Blood Count 5.00 M/mm3 (4.6-6.2); White Blood Count 9.1 K/mm3 (4.4-11.0)
[2025-01-18 21:03] LABS: AST(SGOT) 28 U/L (<=37); Alanine Aminotransfer ALT/SGPT 29 U/L (<=46); Albumin, Serum 4.2 g/dL (3.4-4.8); Alkaline Phosphatase 53 U/L (40-129); Anion Gap 15 (5-15); BUN 6 mg/dL (4-19); BUN/Creat Ratio 5.2 RATIO (10-20); Calcium,Total 9.5 mg/dL (7.6-11.0); Carbon Dioxide 21.5 mmol/L (21.0-32.0); Chloride 104 mmol/L (98-108); Globulin 2.6 g/dL (2.2-4.2); Glucose 97 mg/dL (70-99); Potassium 4.0 mmol/L (3.3-5.1)
== END | disposition home or self-care (01) ==
LOC: LAB 15:47
PROVIDERS: PCP Family Medicine Geriatric Medicine; Referring Provider Family Medicine Geriatric Medicine; Visit Provider Family Medicine Geriatric Medicine
DX: R53.83 Other fatigue (principal)
CPT/HCPCS: 36415; 80053; 84443; 85025

== ENCOUNTER 2025-02-24 09:55 | Day surgery (SDC) | payer MEDICARE, SELFPAY ==
--- NOTE | 2025-02-15 13:47 | EKG12_ITS ---
Test Reason : PREOP Blood Pressure : */* mmHG Vent. Rate : 96 BPM Atrial Rate : 91 BPM P-R Int : * ms QRS Dur : 140 ms QT Int : 382 ms P-R-T Axes : * 91 61 degrees QTcB Int : 482 ms Atrial fibrillation Right bundle branch block Abnormal ECG Confirmed by Tru De ([id number]), commercial production editor BARTOLOME CELESTIN ([id number]) on 02/16/2025 7:13:19 AM Referred By: Epifanio Alonzo Confirmed By: Tru De
--- NOTE | 2025-02-16 15:47 | PAT.ANESEVAL ---
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 When Was Last Pacemaker Check QUESTION #4 FULL TEXT: You/Your Family Experience fever (hyperthermia) with Anesthesia Last Oral Intake Last Oral intake: Last Oral Intake NPO since Meds taken in AM with sips of water? Meds patient instructed to take am of surgery PONV PONV - collection systems modeler: PONV - collection systems modeler Female No 02/10/25 10:26 HX of Motion Sickness No 02/10/25 10:26 HX of N/V After Surgery No 02/10/25 10:26 Non-Smoker No 02/10/25 10:26 Duration of Surgery greater Yes 02/10/25 10:26 than 60 minutes Number of Risk Factors 1 02/10/25 10:26 PONV Score Low Risk 02/10/25 10:26 Height & Weight Height & Weight: Anesthesia: Height & Weight Height 5 ft 9 in 01/26/25 14:18 Respiratory Assessment Respiratory Assessment - collection systems modeler: Respiratory Tract Infection Hx - collection systems modeler Hx Respiratory Tract Infection No 02/10/25 10:26 STOP Sleep Apnea STOP Sleep Apnea - collection systems modeler: STOP Sleep Apnea - collection systems modeler Hx Hypertension No 02/10/25 10:26 Hx Sleep Apnea No 02/10/25 10:26 CPAP No 02/10/25 10:26 BIPAP No 02/10/25 10:26 Do you snore loudly (louder Yes 02/10/25 10:26 than talking or can be heard Do you often feel tired/ No 02/10/25 10:26 fatigued/ sleepy during daytime? Has anyone observed you stop No 02/10/25 10:26 breathing during sleep? STOP Results Negative 02/10/25 10:26 QUESTION #5 FULL TEXT : Do you snore loudly (louder than talking or can be heard through closed doors)? 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 Specify any problems Hx of Preganancy in last 3 N/A 02/10/25 10:26 Months Nurse Filling Out Transfusion VCHRISTIN 02/10/25 10:26 & Questions: Date: 02/10/25 02/10/25 10:26 Time: 10:30 02/10/25 10:26 Patient unable to answer at this time (ie. confused, unrespo /Reproduction History /Reproductive History - collection systems modeler: /Reproductive Hx- collection systems modeler Hx Now No 02/10/25 10:26 Gestational Age (in weeks): EDC: Hx Hx Para Hx Section SAB No 02/10/25 10:26 [facility] Medical History (Updated 02/10/25 @ 10:25 by Anny Wright) Wears glasses Alcohol use Arthritis Back pain Injury of back History of hiatal hernia Smoker Shortness of breath on exertion History of echocardiogram Abnormal Holter monitor finding Cardiology follow-up encounter History of atrial fibrillation Atrial fibrillation Polycythemia 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 DDD (degenerative disc disease) Paroxysmal atrial fibrillation Home Medications ?Medication ?Instructions ?Recorded ?Last Taken ?Type fluticasone propionate 50 2 spray NARES DAILY ALLERGIES 09/24/18 09/24/18 History mcg/actuation nasal spray,suspension sildenafil 50 mg tablet 50 mg PO DAILY PRN ED 11/04/18 10/05/18 History rivaroxaban 20 mg tablet 20 mg PO DAILY 11/10/18 Unknown History atenolol 50 mg tablet 50 mg PO DAILY HEART/BLOOD 06/17/19 Unknown Rx PRESSURE #90 tabs antiarthritic combination no.2 900 900 mg PO DAILY 06/21/22 Unknown History mg tablet (glucosamine-chondroitin) cholecalciferol (vitamin D3) 50 50 mcg PO QDAY 01/26/25 Unknown History mcg (2,000 unit) capsule Allergy/AdvReac Type Severity Reaction Status Date / Time loracarbef (From Lorabid) Allergy Itching/ZHOU Verified 02/10/25 10:13 H Family History Father Diabetes Mother Cancer Breast Diabetes Grandfather Diabetes Surgical History (Updated 02/10/25 @ 10:25 by Anny Wright) History of esophagogastroduodenoscopy (EGD) History of cardiac catheterization Hx of parotidectomy H/O sinus surgery History of bilateral cataract extraction Status post left heart catheterization (LHC) (~11/09/18) History of shoulder surgery History of hernia repair Social History Smoking Status: Current every day smoker tobacco type: cigarettes Tobacco: How many years used: 46 alcohol intake: current alcohol intake frequency: 3 or more drinks per day Alcohol type: other substance use type: marijuana caffeine: Yes Type: carbonated beverages Number of servings: 2 and coffee Number of servings: 2 Audit: Pertinent Findings Pertinent Findings EKG Perinent findings: EKG 02/15/2025. A-fib. Right bundle branch block. Heart catheterization pertinent findings: Heart cath 11/10/2018. Single-vessel CAD of the LAD. Recommendation medical therapy. Consult pertinent findings: Cardiology visit 09/30/2024. History of paroxysmal A-fib and LAD intramyocardial bridge. TTE was performed through the [employer] system. On 04/07/2015. At that time the left ventricle was normal with an LVEF of approximately 60% with trivial MR and trivial to mild TR. Recommendation Anesthesia Recommendation Anesthesia recommendation: OPTIMIZED for anesthesia
[2025-02-24] VITALS (8 sets, daily range): BP systolic 106–128; BP diastolic 65–95; PULSE 84–115; RESP 16; TEMP 36.1–36.6; O2SAT 96–100; BMI 25.1
[2025-02-24] MEDS: Lactated Ringers 1,000 ML 15 ML IV (10:24)
--- NOTE | 2025-02-24 10:40 | PRE.ANES_ITS ---
ASA Classification* ASA Classification ASA Classification: 3 Assessment & Plan Anesthesia* Anesthesia Assessment Anesthesia Assessment: Discussed sedation and/or anesthesia options, risks, benefits, and alternatives with patient/parents/legal guardian/POA. Questions invited. The patient/parents/legal guardian/POA seems to understand and agrees to proceed with anesthesia plan. Reviewed the physical assessment, medical history, allergy history and patient home medications list prior to surgery/procedure/anesthetic and documented any changes. Performed airway and anesthesia risk assessments. Anesthesia Type Anesthesia Type: General History Source History Obtained from:: Patient and Chart Anesthesia Focused Assessment* Temperature: 97.4 F Pulse Rate: 84 Blood Pressure: 119/95 Respiratory Rate: 16 Pulse Ox: 100 Oxygen Delivery Method: Room Air Airway Assessment Mouth opens: >3 cm Mallampati Score: I Teeth Condition: Intact Neck Range of motion (ROM): Full ROM Labs Anesthesia Preop lab: CBC WBC, (4.4-11.0) 9.1 K/mm3 01/18/25, 15:50 RBC, (4.6-6.2) 5.00 M/mm3 01/18/25, 15:50 Hgb, (13.0-16.5) 17.3 g/dL H 01/18/25, 15:50 Hct, (40-54) 49.8 % 01/18/25, 15:50 Plt Count, (150-450) 240 K/mm3 01/18/25, 15:50 CHEMISTRY Potassium, (3.3-5.1) 4.0 mmol/L 01/18/25, 15:50 Sodium, (133-145) 140 mmol/L 01/18/25, 15:50 BUN, (4-19) 6 mg/dL 01/18/25, 15:50 Creatinine, (0.70-1.20) 1.23 mg/dL H 01/18/25, 15:50 Glucose, (70-99) 97 mg/dL 01/18/25, 15:50 TSH, (0.300-4.200) 3.890 uIU/mL 01/18/25, 15:50 COAG PT, (11.7-14.9) 14.0 SECONDS 11/10/18, 10:30 Pre-Assessment Diagnosis/Proposed Procedure Planned Operative Procedure(s): (R) Lap Robotic Inguinal Hernia w/mesh Anesthesia History Anesthesia History - spa attendant: Anesthesia History - spa attendant Hx Hospitalization No 02/10/25 10:26 Any Problems With Anesthesia Yes: HARD TIME CONTROLLING A 02/10/25 10:26 -FIB WITH LAST SURGERY, UNABLE TO COMPLETE LAST SURG Cholinesterase deficiency No 02/10/25 10:26 You/Your Family Experience No 02/10/25 10:26 fever (hyperthermia) with Relationship Recent Exposure to Contagious No 02/24/25 10:17 Disease Does patient have nerve No 02/10/25 10:26 stimulator Patient instructed to have device shut off --Does patient have Pacemaker No 02/24/25 10:17 or ICD? When Was Last Pacemaker Check QUESTION #4 FULL TEXT: You/Your Family Experience fever (hyperthermia) with Anesthesia Last Oral Intake Last Oral intake: Last Oral Intake NPO since 22:00 02/24/25 10:17 Meds taken in AM with sips of Yes 02/24/25 10:17 water? Meds patient instructed to atenolol 0700 02/24/25 10:17 take am of surgery PONV PONV - spa attendant: PONV - spa attendant Female No 02/10/25 10:26 HX of Motion Sickness No 02/10/25 10:26 HX of N/V After Surgery No 02/10/25 10:26 Non-Smoker No 02/10/25 10:26 Duration of Surgery greater Yes 02/10/25 10:26 than 60 minutes Number of Risk Factors 1 02/10/25 10:26 PONV Score Low Risk 02/10/25 10:26 Height & Weight Height & Weight: Anesthesia: Height & Weight Height 5 ft 8.9 in 02/24/25 10:17 Weight: 77 kg 02/24/25 10:17 Body Mass Index (BMI) 25.1 02/24/25 10:17 Respiratory Assessment Respiratory Assessment - spa attendant: Respiratory Tract Infection Hx - spa attendant Hx Respiratory Tract Infection No 02/10/25 10:26 STOP Sleep Apnea STOP Sleep Apnea - spa attendant: STOP Sleep Apnea - spa attendant Hx Hypertension No 02/10/25 10:26 Hx Sleep Apnea No 02/10/25 10:26 CPAP No 02/10/25 10:26 BIPAP No 02/10/25 10:26 Do you snore loudly (louder Yes 02/10/25 10:26 than talking or can be heard Do you often feel tired/ No 02/10/25 10:26 fatigued/ sleepy during daytime? Has anyone observed you stop No 02/10/25 10:26 breathing during sleep? STOP Results Negative 02/10/25 10:26 QUESTION #5 FULL TEXT : Do you snore loudly (louder than talking or can be heard through closed doors)? 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 Specify any problems Hx of Preganancy in last 3 N/A 02/10/25 10:26 Months Nurse Filling Out Transfusion VCHRISTIN 02/10/25 10:26 & Questions: Date: 02/10/25 02/10/25 10:26 Time: 10:30 02/10/25 10:26 Patient unable to answer at this time (ie. confused, unrespo /Reproduction History /Reproductive History - spa attendant: /Reproductive Hx- spa attendant Hx Now No 02/10/25 10:26 Gestational Age (in weeks): EDC: Hx Hx Para Hx Section SAB No 02/10/25 10:26 Active Medications Active Medications: Current Medications Generic Name Dose Route Start Last Admin Trade Name Freq PRN Reason Stop Dose Admin Clindamycin Phosphate 900 mg in 50 mls @ 75 mls/hr 02/24/25 11:30 Cleocin IV 02/24/25 12:09 INTRAOP ONE Lactated Ringer's 1,000 mls @ 15 mls/hr 02/24/25 10:15 02/24/25 10:24 IV 15 mls/hr .Q48H MIRANDA Administration PFSH Medical History (Updated 02/10/25 @ 10:25 by nAny Wright) Wears glasses Alcohol use Arthritis Back pain Injury of back History of hiatal hernia Smoker Shortness of breath on exertion History of echocardiogram Abnormal Holter monitor finding Cardiology follow-up encounter History of atrial fibrillation Atrial fibrillation Polycythemia 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 DDD (degenerative disc disease) Paroxysmal atrial fibrillation Home Medications ?Medication ?Instructions ?Recorded ?Last Taken ?Type fluticasone propionate 50 2 spray NARES DAILY ALLERGIE S 09/24/18 09/24/18 History mcg/actuation nasal spray,suspension sildenafil 50 mg tablet 50 mg PO DAILY PRN ED 10/05/18 History rivaroxaban 20 mg tablet 20 mg PO DAILY 11/10/18 Unkn own History atenolol 50 mg tablet 50 mg PO DAILY HEART/BLOOD 0 06/17/19 Unknown Rx PRESSURE #90 tabs antiarthritic combination no.2 900 900 mg PO DAILY Unknown History mg tablet (glucosamine-chondroitin) cholecalciferol (vitamin D3) 50 50 mcg PO QDAY 5 Unknown History mcg (2,000 unit) capsule Allergy/AdvReac Type Severity Reaction Status Date / Time loracarbef (From Lorabid) Allergy Itching/ZHOU Verified 02/10/25 10:13 H Family History Father Diabetes Mother Cancer Breast Diabetes Grandfather Diabetes Surgical History (Updated 02/10/25 @ 10:25 by Anny Wright) History of esophagogastroduodenoscopy (EGD) History of cardiac catheterization Hx of parotidectomy H/O sinus surgery History of bilateral cataract extraction Status post left heart catheterization (LHC) (~11/09/18) History of shoulder surgery History of hernia repair Social History Smoking Status: Current every day smoker tobacco type: cigarettes Tobacco: How many years used: 46 alcohol intake: current alcohol intake frequency: 3 or more drinks per day Alcohol type: other substance use type: marijuana caffeine: Yes Type: carbonated beverages Number of servings: 2 and coffee Number of servings: 2 Review of Systems (Anesthesia) ROS Narrative System reviewed and no additional complaints, except as documented.
--- NOTE | 2025-02-24 10:56 | PCM.HP.STD ---
HPI - General General Date of Admission: 02/24/25 Date of Service: 02/24/25 Chief Complaint: Right inguinal hernia HPI Narrative ANATOLY TANG, is a 59 M who presents today for robotic repair of a recurrent right inguinal hernia. 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 DDD (degenerative disc disease) Paroxysmal atrial fibrillation Home Medications ?Medication ?Instructions ?Recorded ?Last Taken ?Type fluticasone propionate 50 2 spray NARES DAILY ALLERGIES 09/24/18 02/23/25 History mcg/actuation nasal spray,suspension sildenafil 50 mg tablet 50 mg PO DAILY PRN ED 11/04/18 02/23/25 History rivaroxaban 20 mg tablet 20 mg PO DAILY 11/10/18 02/23/25 History atenolol 50 mg tablet 50 mg PO DAILY HEART/BLOOD 06/17/19 02/24/25 07:00 Rx PRESSURE #90 tabs antiarthritic combination no.2 900 900 mg PO DAILY 06/21/22 02/23/25 History mg tablet (glucosamine-chondroitin) cholecalciferol (vitamin D3) 50 50 mcg PO QDAY 01/26/25 02/23/25 History mcg (2,000 unit) capsule Allergy/AdvReac Type Severity Reaction Status Date / Time loracarbef (From Lorabid) Allergy Itching/ZHOU Verified 02/10/25 10:13 H Family History Father Diabetes Mother Cancer Breast Diabetes Grandfather Diabetes Surgical History (Updated 02/10/25 @ 10:25 by Anny Wright) History of esophagogastroduodenoscopy (EGD) History of cardiac catheterization Hx of parotidectomy H/O sinus surgery History of bilateral cataract extraction Status post left heart catheterization (LHC) (~11/09/18) History of shoulder surgery History of hernia repair Social History Smoking Status: Current every day smoker tobacco type: cigarettes Tobacco: How many years used: 46 alcohol intake: current alcohol intake frequency: 3 or more drinks per day Alcohol type: other substance use type: marijuana caffeine: Yes Type: carbonated beverages Number of servings: 2 and coffee Number of servings: 2 Vital Signs Vital Signs Vital Signs: 02/24/25 10:17 02/24/25 10:17 02/24/25 10:46 Temperature 97.4 F L 97.4 F L Temperature Source Temporal Pulse Rate 84 84 Respiratory Rate 16 16 Respiratory Pattern Normal Blood Pressure 119/95 H 119/95 H Blood Pressure Mean 103 Blood Pressure Source Monitor Blood Pressure Position Supine Blood Pressure Location Right Arm Pulse Ox 100 100 Oxygen Delivery Method Room Air Room Air Weight Weight: 169 lb 12.095 oz Body Mass Index (BMI) 25.1 Physical Exam Const alert, oriented x3 and no apparent distress Assessment & Plan Assessment/Plan (1) Right inguinal hernia: PLAN: Plan The patient is a 59-year-old male with a recurrent right inguinal hernia. I have offered him a robotic right inguinal hernia repair with mesh. We discussed the details of the planned procedure and he wishes to proceed. We also discussed risk benefits and alternatives.
[2025-02-24] MEDS: fentaNYL 100 MCG/2 ML Ampul 200 MCG IV (11:15)
[2025-02-24] MEDS: Lidocaine 1% (5 ml sdv) 5 ML Vial IV (11:15)
[2025-02-24] MEDS: Bupiv/Epi 0.25% 30 ML Vial (12:19)
--- NOTE | 2025-02-24 12:37 | EX.PCM.DISCH ---
Discharge Instructions Diet Discharge Diet: Light diet - advance as tolerated Activity Discharge Activity: Return to Normal Activity and May Shower May shower in (days): 1 Ice area for (Minutes): 30 Lifting Restrictions: No lifting pushing or pulling more than 20 pounds for 6 weeks Dressing / Incision Call your doctor if your incision/area has: Continuous Slow Oozing, Sudden Increased Bleeding, Increased Pain/ Swelling, Increased Redness, Foul Smelling Discharge and Swelling at the incision site Call your doctor if you observe: Fever of 101 or Higher Cleanse incision/area with: Soap & Water Follow Up Care Please Follow Up With: Epifanio Alonzo MD When: 2 weeks. Please call office to schedule appointment. Test Results: Test results from this visit will be discussed in further detail at your follow-up appointment, if applicable. Discharge Plan Admission Primary Reason for Your Visit: Right inguinal hernia repair Attending Provider: Epifanio Alonzo Primary Care Provider: Timothy Beck Chi Instructions Print Language: Luxem[place]ish Discharge Orders/Prescriptions Prescriptions: New oxycodone 5 mg capsule 5 mg PO Q8H PRN (Reason: pain) 4 Days Qty: 12 0RF Continued sildenafil 50 mg tablet 50 mg PO DAILY PRN (Reason: ED) glucosamine-chondroitin 900 mg tablet 900 mg PO DAILY cholecalciferol (vitamin D3) 50 mcg (2,000 unit) capsule 50 mcg PO QDAY fluticasone propionate 50 mcg/actuation spray,suspension 2 spray NARES DAILY Patient Comments: [place] 2 spray into both nostrils once a day rivaroxaban 20 MG tablet 20 mg PO DAILY Patient Comments: LAST DOSE 02/20/2025 atenolol 50 mg tablet 50 mg PO DAILY Qty: 90 3RF Referrals / Follow Up: Timothy Beck Chi, MD [Primary Care Provider, Geriatrics] Disposition Disposition (needs filled in before D/C Order can be placed): Home, Self Care
--- NOTE | 2025-02-24 12:43 | PCM.OPRPT ---
Procedures Digestive [id number]: [id number] Lap ing hernia repair recur Operative Report (Standard) Operative Information Date of Procedure: 02/24/25 Pre-Operative Diagnosis: Recurrent right inguinal hernia Post-Operative Diagnosis: Same Surgery/Procedure Performed: Robotic right inguinal hernia repair with mesh superintendent geophysical laboratory: Yes Car Chaser: Olivia Kong Tasks completed by medical assistant ob gyn: Closing, Trocar and Other Additional assistant program director?: No Type of Anesthesia: General and Local RN Documented Start/Stop Times: Operation Date: 02/24/25 11:30 Case Time Into Pre-Op 02/24/25 10:05 Out of Pre-Op 02/24/25 11:00 Anesthesia Start 02/24/25 11:10 Into Room 02/24/25 11:10 Procedure Start 02/24/25 11:31 Procedure End 02/24/25 12:30 Anesthesia End 02/24/25 12:32 Out of Room 02/24/25 12:32 Into Recovery 02/24/25 12:33 Procedure Start Time: 11:31 Procedure Stop Time: 12:30 Select all DRAINS/GRAFTS/IMPLANTS that apply: Prosthetic device Prosthetic device details: 10 x 15 cm ProGrip mesh Special Medications: 900 clindamycin IV Estimated Blood Loss: 5 mL Specimen collected: No Description of surgery: The patient is a 59-year-old male recently seen through the office with a right inguinal hernia. He states that this is causing him increasing pain and discomfort. He states that he had this repaired as an open repair without mesh about 20 years ago. I offered him a robotic right inguinal hernia repair with mesh. We discussed the details of the planned procedure and he wished to proceed. Incidentally he had had a previous laparoscopic left inguinal hernia repair. The patient was brought to the operating room today following informed consent. He was placed supine on the operative table with arms outstretched and arm boards. General endotracheal anesthesia was induced. His arms were then comfortably tucked at his sides. His abdomen was prepped and draped in the usual sterile manner. An 8 mm incision was made just above the umbilicus which a 5 mm trocar was then placed optically. This was placed without incident. Once in place the abdomen is then fully insufflated with CO2 gas. A 5 mm 0 degree scope was inserted. There were no signs of bowel or vascular injury. Next 2 additional trocars were placed under direct visualization. These were 8 mm robot trocars. These were placed at about the same level of the umbilicus. The patient was then placed into Trendelenburg positioning and the robot was docked. Instruments were inserted. The right groin was then visualized. The hernia was clearly visible. The peritoneum overlying this hernia was then incised in a lateral to medial direction using curved scissors and electrocautery. A subperitoneal flap was then developed using blunt dissection. Gabriel's ligament was easily dissected out medially. The hernia sac was from the cord structures. The hernia sac was reduced. Once sufficient dissection was performed to accommodate the mesh, a 10 x 15 cm ProGrip mesh was selected. This was trimmed slightly to accommodate the surgical field. This was then placed in antibiotic solution and inserted into the abdomen. This was then laid in position and unrolled. The mesh covered over the surgical field well. Next, V-Loc suture was then used to close the peritoneum in a running manner. This closed the peritoneum nicely. At this point insufflation was allowed to escape and the trocars were removed. Local anesthetic was injected into the incisions. Incision was then closed with 5-0 Vicryl. Skin glue was applied as dressing. He was awakened from anesthesia and taken to recovery in good condition. Surgical Findings: Right inguinal hernia Complications Complications: No
--- NOTE | 2025-02-24 13:15 | PCM.POST.ANE ---
Anesthesia: Postop Eval I Current Vital Signs Temperature: 97.5 F Pulse Rate: 115 Blood Pressure: 107/65 Respiratory Rate: 16 Pulse Ox: 99 Oxygen Delivery Method: Room Air Assessment Airway patent: Yes Spontaneous unlabored respirations: Yes Mental status: Awake and Calm nausea: No Vomiting: No Anesthesia Complication: No Fluid Hydration Crystalloid volume administer (ml): 1,100 Total IV fluid infused: 1,100 Progress Note Anesthesia document: Postop Eval 1 completed: Yes
--- NOTE | 2025-02-24 16:07 | POSTOPAN2_ITS ---
Anesthesia Postop Eval I Sum Postop Eval Completion status Anesthesia document: Postop Eval 1 completed: Yes Anesthesia Postop Eval I Summary Anesthesia Postop Eval I Summary: Anesthesia Postop Eval I: Assessment Summary Airway patent Yes 02/24/25 13:16 TOWER [email or web address] Spontaneous unlabored Yes 02/24/25 13:16 TOWER [email or web address] respirations Mental status Awake,Calm 02/24/25 13:16 TOWER [email or web address] nausea No 02/24/25 13:16 TOWER [email or web address].[email or web address] Vomiting No 02/24/25 13:16 TOWER [email or web address] Anesthesia Postop Eval I: Fluid Summary Crystalloid volume administer 1,100 02/24/25 13:16 TOWER [email or web address].[email or web address] (ml) Colloids volume administered ( ml) Blood Product volume administered (ml) Total IV fluid infused 1,100 02/24/25 13:16 TOWER [email or web address] Anesthesia Postop Eval I: Summary Notes Anesthesia Complication No 02/24/25 13:16 TOWER [email or web address] Anesthesia Complication Comment: Post-operative progress note Anesthesia: Postop Eval II Evaluation Mental status: Awake Pain Level: 1 nausea: No Vomiting: No
--- NOTE | 2025-02-24 16:07 | PCM.POSTANE2 ---
Anesthesia Postop Eval I Sum Postop Eval Completion status Anesthesia document: Postop Eval 1 completed: Yes Anesthesia Postop Eval I Summary Anesthesia Postop Eval I Summary: Anesthesia Postop Eval I: Assessment Summary Airway patent Yes 02/24/25 13:16 IT SYSTEMS ANALYST CONSULTANT.[email or web address] Spontaneous unlabored Yes 02/24/25 13:16 IT SYSTEMS ANALYST CONSULTANT.MDOT respirations Mental status Awake,Calm 02/24/25 13:16 IT SYSTEMS ANALYST CONSULTANT.MDOT nausea No 02/24/25 13:16 IT SYSTEMS ANALYST CONSULTANT.MDOT Vomiting No 02/24/25 13:16 IT SYSTEMS ANALYST CONSULTANT.MDOT Anesthesia Postop Eval I: Fluid Summary Crystalloid volume administer 1,100 02/24/25 13:16 IT SYSTEMS ANALYST CONSULTANT.MDOT (ml) Colloids volume administered ( ml) Blood Product volume administered (ml) Total IV fluid infused 1,100 02/24/25 13:16 IT SYSTEMS ANALYST CONSULTANT.MDOT Anesthesia Postop Eval I: Summary Notes Anesthesia Complication No 02/24/25 13:16 IT SYSTEMS ANALYST CONSULTANT.MDOT Anesthesia Complication Comment: Post-operative progress note Anesthesia: Postop Eval II Evaluation Mental status: Awake Pain Level: 1 nausea: No Vomiting: No
== END 2025-02-24 13:58 | disposition home or self-care (01) ==
LOC: SDC 09:57 → AC 09:58
PROVIDERS: PCP Family Medicine Geriatric Medicine; Referring Provider Surgery; Visit Provider Surgery
PROC: (CPT 49651; principal; 2025-02-24 11:10)
DX: K40.91 Unilateral inguinal hernia, without obstruction or gangrene, recurrent (principal); Z79.899 Other long term (current) drug therapy; I25.10 Atherosclerotic heart disease of native coronary artery without angina pectoris; F17.210 Nicotine dependence, cigarettes, uncomplicated
CPT/HCPCS: 49651; S2900; 00840; 93005; C1781; J2405